=== PATIENT | male | born 1980 | race African-American/Black ===

== ENCOUNTER 2019-01-08 14:07 | Inpatient (IN) | payer SELFPAY ==
[~2019-01-08] VITALS: Ht 185.4 cm; Wt 143.9 kg
[2019-01-08 15:26] LABS: Basophils # (auto) 0.1 uL; Basophils % (auto) 0.6 % (0.0-2.0); Eosinophils # (auto) 0.1 uL; Eosinophils % (auto) 1.1 % (0.0-7.0); Mean Corpuscular Volume 65.4 fL (80.0-100.0); Red Blood Cells 4.79 10^6/uL (4.5-5.90)
[2019-01-08 15:29] LABS: Hematocrit 31.4 % (41.0-53.0); Hemoglobin 8.6 g/dL (13.5-17.5); Lymphocytes % (auto) 23.3 % (10.0-50.0); Mean Corpuscular Hgb Conc. 27.6 g/dL (32.0-36.0); Monocytes # (auto) 0.9 uL; Monocytes % (auto) 6.7 % (0.0-12.0); Neutrophils # (auto) 8.8 uL; Neutrophils % (auto) 68.3 % (37.0-80.0); Nucleated Red Blood Cells % 0.2 %; Platelet Count (auto) 413 10^3/uL (140-450); White Blood Cell 12.9 10^3/uL (4.4-10.8)
[2019-01-08 15:30] LABS: Albumin 3.4 g/dL (3.4-5.0); BUN/Creatinine Ratio 8.7; Calcium 8.8 mg/dL (8.5-10.1); Potassium 3.7 mmol/L (3.5-5.1)
[2019-01-08 15:33] LABS: Bilirubin, Total 0.4 mg/dL (0.2-1.0); Total Protein 7.9 g/dL (6.4-8.2)
[2019-01-08 15:37] LABS: INR < 0.93 (0.9-1.15); Partial Thromboplastin Time 27.1 sec (23.64-32.05)
[2019-01-08 15:39] LABS: Red Cell Distribution Width 25.3 % (11.8-14.3)
[2019-01-08] MEDS ORDERED: FAMOTIDINE (10MG/ML) 2ML VL IV ONE (23:45)
[2019-01-08] MEDS ORDERED: SODIUM CHLORIDE 0.9% 1,000 ML IV ONE (23:45)
[2019-01-09] VITALS (8 sets, daily range): BP systolic 120–150; BP diastolic 65–83
--- NOTE | 2019-01-09 07:10 | NUR ---
Echocardiogram obtained at the bedside.
[2019-01-09 07:34] LABS: Urine Bacteria NONE SEEN /hpf (None Seen); Urine Blood Negative /uL (Negative); Urine Mucus FEW (None Seen); Urine Specific Gravity 1.024 (1.001-1.035); Urine WBC 2 /hpf (0 - 3)
[2019-01-09 07:37] LABS: Hemoglobin 8.1 g/dL (13.5-17.5)
[2019-01-09 07:39] LABS: Hematocrit 29.1 % (41.0-53.0)
[2019-01-09 07:48] LABS: Amphetamine Screen, Urine NEGATIVE (NEGATIVE); Barbiturate Scree,Urine NEGATIVE (NEGATIVE); Benzodiazephine Screen, Urine NEGATIVE (NEGATIVE); Cannabinoid Screen, Urine NEGATIVE (NEGATIVE); Cocaine Screen, Urine NEGATIVE (NEGATIVE); Opiate Scree,Urine NEGATIVE (NEGATIVE); Phencyclidine Screen, Urine NEGATIVE (NEGATIVE)
[2019-01-09] MEDS ORDERED: PROMETHAZINE HCL 25 MG/ML 1ML IV PRN (10:00)
[2019-01-09] MEDS ORDERED: NITROGLYCERIN 0.4 MG SL TAB SL PRN (10:00)
[2019-01-09] MEDS ORDERED: ACETAMINOPHEN 500 MG TAB PO PRN (10:00)
[2019-01-09] MEDS ORDERED: MORPHINE SULF INJ 2 MG/ML SYRINGE 1ML IV PRN (10:00)
[2019-01-09] MEDS: PANTOPRAZOLE 40 MG TAB PO SCH ×2 (10:45→21:53)
[2019-01-09] MEDS: SODIUM CHLORIDE 0.9% 1,000 ML IV SCH ×2 (10:46→18:10)
--- NOTE | 2019-01-09 11:15 | NUR ---
Admit to [facility] admitted to [facility] via gurney on alarm security or surveillance monitor, and portable 02. Patient walked to bed by himself, connected to unit monitoring and oxygen, on O2 NC 2 LPM, and weighed by bedscale. Patient oriented to LEE BARILLAS RN primary RN, unit, room, bed, and unit policies regarding patient care and visiting hours. All questions and concerns addressed, patient verbalized understanding. Assessment done, plan of care discussed with patient and his , they refused to get Flu vaccine at this admission, the benefits explained but still refused. His requested social service consult for recourses and home safety.
[2019-01-09] MEDS: CEFOTETAN 1GM/D5W 50ML BAG 50 ML IV SCH ×2 (11:59→21:53)
[2019-01-09 12:00] LABS: Hematocrit 29.2 % (41.0-53.0); Hemoglobin 8.1 g/dL (13.5-17.5)
--- NOTE | 2019-01-09 13:15 | NUR ---
Patient went to the restroom, had small bowel movement with green color, forgot to correct the sample at this time. Patient made aware for the next time.
--- NOTE | 2019-01-09 13:30 | NUR ---
Patient had around 100% of Lunch tray.
--- NOTE | 2019-01-09 13:49 | NUR ---
Patient was sleeping and room air, he had desaturation from 74-87% while room air, HR 45-70/min, place O2 NC 2 LPM, will continue to monitor and care.
--- NOTE | 2019-01-09 13:56 | NUR ---
Patient's stated that patient has CPAP at home but the mask is broken and patient didn't use the CPAP for awhile.
[2019-01-09] MEDS ORDERED: IBUP200C3 PO (15:17)
[2019-01-09] MEDS ORDERED: FERR27TA2 PO (15:18)
[2019-01-09] MEDS ORDERED: ESOM20CA PO (15:18)
[2019-01-09] MEDS ORDERED: BENA5TAB5 PO (15:18)
[2019-01-09] MEDS ORDERED: CALC500C3 PO (15:18)
--- NOTE | 2019-01-09 16:15 | NUR ---
Received a call from Dr. Lugo, received order for NPO after midnight for EGD by Dr. Dumont on 01/10/19. Patient made aware.
--- NOTE | 2019-01-09 17:00 | NUR ---
Patient went to the restroom, provided wash clothes and warm water, patient cleaning himself inside the restroom then he went back to the bed, stated that he felt better. No accident noted.
[2019-01-09 18:07] LABS: Hematocrit 30.5 % (41.0-53.0); Hemoglobin 8.5 g/dL (13.5-17.5)
--- NOTE | 2019-01-09 18:35 | NUR ---
Dinner tray provided, and patient said he really hungry, he is staving, provided 2 more of apple juice and 2 more of jelly, order requested for ice cream to cafeteria. Patient also made aware that he will need to be NPO after midnight, will continue to monitor and care.
--- NOTE | 2019-01-09 19:30 | NUR ---
Opening Shift Note Assumed care of patient, awake and alert, walking in the room to the restroom, stable gait, tolerated well. Breathing on room air, No S/S of distress/SOB. Denied pain. 20G IV on left FA, CDI site, infusing NS. Due to void. Bed in low position, call light within reach, all alarms are audible, fall and safety precaution in place. Instructed on POC and to call for assist PRN, will continue to monitor for changes Q1hr and PRN.
--- NOTE | 2019-01-09 19:35 | NUR ---
Supplement Finished the dinner (1 bowl of soup, 50ml of extra broth, Jello-O x3, 1 Ice cream, 1 cup of tea). Pt asked for more tea with 4 sachets of sugar, Jell-Os. Provided Pt with a cup of tea with 2 sugars and 2 Splendid and 2 Jell-o. Pt tolerated well.
--- NOTE | 2019-01-09 22:00 | NUR ---
Condition update Pt v/s and condition stable. The at bedside, instructed on POC. Continue care.
[2019-01-10] VITALS: BP 129/60
--- NOTE | 2019-01-10 00:05 | NUR ---
LAB Noted no speech language pathologist assistant at bedside for 00.00am LABs. Called the LAB and notified, the [employer] Worker will come.
--- NOTE | 2019-01-10 00:15 | NUR ---
Condition update / apnea Pt fell asleep on RA breathing. Pt had sleep apnea, fluctuation of O2sat from 73-98%, Bradycardia to 40's while hypoxic. Woke Pt up, put on O2NC 3LPM. Paged RT for BiPAP at night. Continue monitoring.
--- NOTE | 2019-01-10 00:45 | NUR ---
Pulled BiPAP mask Pt woke up and pulled BiPAP mask out after wore for 15mins. Checked on Pt, Pt said the mask was to tight, agreed to wear BiPAP again. Pt adjusted the tightness by self. BiPAP setting 12/5, 28% O2, RR12. Breathing even and nonlabored, synchronized, O2sat 98%, no apneic cycle noted. Continue monitor.
--- NOTE | 2019-01-10 01:30 | NUR ---
Condition update/ pulled mask Pt woke up for urination and pulled the mask out. Explained the need of the mask and the condition that happened when Pt was apneic. Pt accepted to wear the mask back. Pt asked if the pressure can be adjusted lower. Told Pt that will ask the RT for him. Continue care.
[2019-01-10 02:00] LABS: Hematocrit 28.4 % (41.0-53.0); Hemoglobin 7.9 g/dL (13.5-17.5)
--- NOTE | 2019-01-10 02:15 | NUR ---
PT STATED HE WAS UNABLE TO TOLERATE BIPAP DUE TO THE DRY AIR. [facility] CPAP UNIT HAS WATER CHAMBER FOR HUMIDIFICATION. BIPAP REMOVED FROM ROOM AND REPLACED WITH CPAP UNIT 5. PT HOME SETTINGS CONTINUED WITH 6 CMH2O CPAP. THERE IS A 4L O2 BLEED IN CONNECTED. PT IS WEARING A MEDIUM FULL FACE MASK WITH LIQUICELL IN PLACE. NO SKIN BREAKDOWN NOTED. PT TOLERATING CPAP AT THIS TIME. WILL CONTINUE TO MONITOR PT.
--- NOTE | 2019-01-10 02:40 | NUR ---
Pulled CPAP mask, refused CPAP, C/O Pt woke up and pulled CPAP mask. Pt refused to wear the mask despite knowing the consequences. Prepared O2NC 5LPM at bedside for the Pt. Pt refused to wear the O2NC now, said that he will not sleep soon. Pt c/o that the air from the CPAP machine is dry and his mouth is dry. Pt asked to drink or have some more ices. Explained and reminded Pt about the procedure tomorrow. He said he supposed to be able to drink, explained to Pt and provided Pt with Lemon swabs. Pt still not satisfied. Continue monitor.
[2019-01-10] MEDS: SODIUM CHLORIDE 0.9% 1,000 ML IV SCH ×3 (03:25→18:49)
[2019-01-10 04:00] VITALS: BP 143/79
[2019-01-10 04:37] LABS: Basophils # (auto) 0.1 uL; Eosinophils # (auto) 0.1 uL; Hemoglobin 7.9 g/dL (13.5-17.5); Monocytes # (auto) 0.6 uL
[2019-01-10 04:38] LABS: Basophils % (auto) 0.5 % (0.0-2.0); Eosinophils % (auto) 0.6 % (0.0-7.0); Hematocrit 28.8 % (41.0-53.0); Lymphocytes # (auto) 2.4 uL; Lymphocytes % (auto) 22.1 % (10.0-50.0); Mean Corpuscular Hgb Conc. 27.4 g/dL (32.0-36.0); Mean Corpuscular Volume 65.5 fL (80.0-100.0); Monocytes % (auto) 5.9 % (0.0-12.0); Neutrophils # (auto) 7.6 uL; Neutrophils % (auto) 70.9 % (37.0-80.0); Nucleated Red Blood Cells % 0.3 %; Platelet Count (auto) 366 10^3/uL (140-450); Red Blood Cells 4.39 10^6/uL (4.5-5.90); White Blood Cell 10.7 10^3/uL (4.4-10.8)
[2019-01-10 05:02] LABS: Red Cell Distribution Width 25.5 % (11.8-14.3)
--- NOTE | 2019-01-10 05:20 | NUR ---
12 leads EKG obtained.
--- NOTE | 2019-01-10 05:30 | NUR ---
Patient bathe/linen change Patient given complete bath with CHG wipes for EGD preparation. Skin integrity assessed for any changes, no new changes. Complete linens changed. Patient repositioned by self well.
--- NOTE | 2019-01-10 06:10 | NUR ---
Summary Pt's condition stable. BP good. HR and O2sat fluctuating from apneic episode. Pt pulls his O2 face mask q 2mins to 30mins despite explaining. Lowest HR 39 and O2sat 69% with apneic breathing on RA because Pt pulled the mask. O2sat lowest with apneic episode with O2 face mask 5LPM = 93%. Continue care and will endorsed to day nurse.
--- NOTE | 2019-01-10 06:50 | NUR ---
PT. SLEEPING AT THIS TIME, OFF HIS CPAP. PT. CAME OFF EARLY THIS MORNING. TAKEN OFF BY NOC SHIFT RT., NO RESP. DISTRESS OR SOB NOTED. HR=61,RR=18,SP02=97% ON RA., CONTINUE TO MONITOR PT.
--- NOTE | 2019-01-10 07:30 | NUR ---
RECEIVED PATIENT SITTING UP IN THE BED, O2 BY SIMPLE MASK AT 5L, A/O TIMES 4, NS INFUSING INTO THE LFA AT 125ML/HR BY THE IV PUMP, USES THE URINAL ,DENIES PAIN
[2019-01-10 08:00] VITALS: BP 124/69
[2019-01-10] MEDS ORDERED: LIDOCAINE VISCOUS 2% 15ML UD ONE (08:15)
[2019-01-10] MEDS ORDERED: SODIUM CHLORIDE LOCK 10 ML ONE (08:15)
[2019-01-10] MEDS ORDERED: FLUMAZENIL 0.1 MG/ML INJ 10ML MDV IV ONE (08:15)
[2019-01-10] MEDS ORDERED: NALOXONE HCL 0.4 MG/ML VIAL ONE (08:15)
[2019-01-10] MEDS ORDERED: diphenhdrAMINE HCL 50 MG/1 ML VL ONE (08:16)
--- NOTE | 2019-01-10 08:48 | NUR ---
UP TO THE SINK PERFORMING ADLS
--- NOTE | 2019-01-10 10:00 | NUR ---
sitting up in the bed sleeping
[2019-01-10] MEDS: CEFOTETAN 1GM/D5W 50ML BAG 50 ML IV SCH ×2 (10:52→22:53)
[2019-01-10] MEDS: PANTOPRAZOLE 40 MG TAB PO SCH ×2 (10:52→21:45)
--- NOTE | 2019-01-10 11:00 | NUR ---
IN TO SEE THE PATIENT
--- NOTE | 2019-01-10 11:45 | NUR ---
EXPRESS TO THE PATIENT THAT HE CAN'[T GO OUT SIDE OR WALK AROUND IN THE [facility] HE IS IN [facility] BECAUSE THEY FEEL THAT HE NEEDS TO BE WATCHED MORE CLOSELY
[2019-01-10 12:00] VITALS: BP 131/76
--- NOTE | 2019-01-10 12:10 | NUR ---
DR PARKER IN TO SEE THE PATIENT
--- NOTE | 2019-01-10 12:35 | NUR ---
PATIENT TO THE GI LAB FOR EGD
[2019-01-10] MEDS: MIDAZOLAM HCL 5 MG/ML-1ML VIAL ONE ×2 (13:27→13:29)
[2019-01-10] MEDS: fentaNYL CITRATE 100 MCG/2 ML VL ONE ×2 (13:27→13:29)
--- NOTE | 2019-01-10 14:13 | NUR ---
REPORT CALLED TO [facility] PATIENT GOING TO ROOM 284B BY THE BED FROM THE GI LAB WILL BE PLACED ON TELE HC18
--- NOTE | 2019-01-10 14:25 | NUR ---
Patient to floor from recovery. S/p EGD. tolerated procedure well. no complications reported to me. the patient is alert and oriented. Somewhat tired but easily aroused. will continue to monitor the patient. they are encouraged to use the call light to call for assistance whenever they need it.
[2019-01-10 16:47] VITALS: BP 118/79
--- NOTE | 2019-01-10 17:10 | NUR ---
assessment Patient is a 38 year old male who is alert and oriented. Prior to admission patient lived home with his family and functioned independently. 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 Patient informed me he feels safe returning home on discharge. Patient informed me he has been weak since he became ill. I informed patient he has a consult for resources and home safety per family request. Patient informed me his needs help with taking care of the kids, taking care of the dogs, house work. I offered patient resources for private pay caregivers. Patient declined and told me to call his to see what she needs. I call patients and the number disconnects. Patient informed me he has no post discharge needs at this time. Patient verbalized understanding and agreed to discharge plan home. Addendum: 01/10/19 at 1715 by Lorenza BEST Amended: Links added.
[2019-01-10] MEDS: SUCRALFATE 1 GM/10 ML ORAL SUSP PO SCH ×2 (18:49→21:45)
--- NOTE | 2019-01-10 20:00 | NUR ---
OPENING NOTE RECEIVED REPORT FROM DAYSHIFT RN. ASSUMING ROLE OF CARE OF PATIENT AT THIS TIME. PATIENT EDUCATED ON PLAN OF CARE FOR THE NIGHT AND PATIENT VERBALIZED UNDERSTANDING. PATIENT SHOWING NO SIGN OF DISTRESS, SHORTNESS OF BREATH, AND PATIENT DENIES ANY PAIN AT THIS TIME. FOOD FOUND AT PATIENT'S TABLE. PATIENT IS FULL LIQUID AT THIS TIME. INFORMED PATIENT THAT THEY ARE NOT TO EAT ANY OF THAT FOOD. PATIENT VERBALIZED UNDERSTANDING AND STATES IT WAS FOR HIS THAT SHE BROUGHT IN. BED LOWERED, CALL LIGHT WITHIN REACH, AND PATIENT WILL BE ROUNDED ON EVERY HOUR AND NEEDED.
[2019-01-10] MEDS: traMADol HCL 50 MG TAB PO PRN (20:55)
[2019-01-10 22:00] VITALS: BP 120/57
--- NOTE | 2019-01-10 23:45 | NUR ---
Respiratory note: AT BEDSIDE TO ASSESS PT. PT DOES NOT WANT TO WEAR CPAP AT THIS TIME. BS ARE CLEAR DIMINISHED T/O, HR62, POX 96% ON RA. RN LEIGHTON AT BEDSIDE. PT AWARE HE CAN HAVE ME PAGED IF HE DECIDES HE WANTS TO BE PLACED ON CPAP. WILL CONTINUE TO MONITOR.
--- NOTE | 2019-01-11 00:50 | NUR ---
Respiratory note: CALLED TO BEDSIDE BY REBECA MANZANARES. PT HAS EPISODES OF DESATURATION. EXPLAINED TO PT THAT I MUST PLACE PT ON CPAP. PLACED ON CPAP ON SIZE M, MASK, NO BREAKDOWN NOTED,WITH 2LPM BLEED IN POX 99%. UNIT CONNECTED TO RED OUTLET AND O2 SOURCE. BS ARE DIMINISHED CLEAR T/O, PLACED ON BEDSIDE POX PER PROTOCOL.
--- NOTE | 2019-01-11 00:52 | NUR ---
RECEIVED CALL FROM [facility]. PATIENT'S HAS BRADYCARDIA WITH PAUSES. WALKED INTO PATIENT'S ROOM AND FOUND PATIENT DESATURATED WITHOUT CPAP. PATIENT PLACED ON O2 AND RT PAGED. RT PLACED PATIENT ON CPAP AND PATIENT'S O2 SATURATIONS RETURNED TO NORMAL AND HEART RATE INCREASED TO NORMAL LEVELS IN THE 70S. WILL CONTINUE TO MONITOR.
[2019-01-11] MEDS: SODIUM CHLORIDE 0.9% 1,000 ML IV SCH ×2 (01:48→09:48)
--- NOTE | 2019-01-11 02:29 | NUR ---
Respiratory note: AT BEDSIDE FOR ROUTINE CPAP CHECK. PT COMFORTABLY SLEEPING. NO CPAP CHANGES AT THIS TIME. WILL CONTINUE TO MONITOR Q2H.
--- NOTE | 2019-01-11 03:08 | NUR ---
CALLED TO BEDSIDE FOR PT DESAT. PT HAD REMOVED CPAP MASK AND O2 BLEED BECAME DISCONNECTED. O2 REATTACHED AND POX 96%
--- NOTE | 2019-01-11 04:37 | NUR ---
Respiratory note: AT BEDSIDE FOR END OF SHIFT CHECK. NO CHANGES MADE TO UNIT PT COMFORTABLY SLEEPING. WILL HAVE DAY SHIFT RT CONTINUE PLAN OF CARE.
--- NOTE | 2019-01-11 05:31 | NUR ---
PATIENT HAD A FIVE BEAT RUN OF VTACH EKG PERFORMED AND PATIENT ASSESSED. NO PAIN NOTED AND PATIENT IS ASYMPTOMATIC. EKG SHOWED SINUS BRADYCARDIA AND PVC. OTHERWISE NORMAL. HOSPITALIST PAGED AND INFORMED. NO FURTHER ORDERS PLACED AT THIS TIME.
[2019-01-11 05:34] VITALS: BP 132/59
[2019-01-11 06:11] LABS: Basophils # (auto) 0 uL; Basophils % (auto) 0.5 % (0.0-2.0); Nucleated Red Blood Cells % 0.1 %
[2019-01-11 06:13] LABS: Eosinophils # (auto) 0 uL; Eosinophils % (auto) 0.4 % (0.0-7.0); Hematocrit 30.2 % (41.0-53.0); Hemoglobin 8.5 g/dL (13.5-17.5); Lymphocytes # (auto) 2.2 uL; Lymphocytes % (auto) 23.4 % (10.0-50.0); Mean Corpuscular Hemoglobin 18.3 pg (28.0-32.0); Mean Corpuscular Hgb Conc. 28.1 g/dL (32.0-36.0); Mean Corpuscular Volume 65.1 fL (80.0-100.0); Monocytes # (auto) 0.5 uL; Neutrophils # (auto) 6.5 uL; Neutrophils % (auto) 70.7 % (37.0-80.0); Platelet Count (auto) 363 10^3/uL (140-450); Red Blood Cells 4.63 10^6/uL (4.5-5.90); White Blood Cell 9.3 10^3/uL (4.4-10.8)
[2019-01-11 06:18] LABS: Red Cell Distribution Width 24.8 % (11.8-14.3)
[2019-01-11] MEDS: traMADol HCL 50 MG TAB PO PRN ×2 (06:24→22:32)
[2019-01-11] MEDS: SUCRALFATE 1 GM/10 ML ORAL SUSP PO SCH ×4 (06:45→22:00)
--- NOTE | 2019-01-11 06:45 | NUR ---
Respiratory note: PATIENT TAKEN OFF CPAP AT THIS TIME AND WAS PLACED ON 2LPM N/C.
--- NOTE | 2019-01-11 07:30 | NUR ---
OPENING NOTE The patient is received alert and oriented times four with no SOB or s/s of distress at this time. The patient is resting in bed in the lowest position with call light within reach, will continue to monitor and POC.
[2019-01-11 09:00] VITALS: BP 150/71
--- NOTE | 2019-01-11 09:30 | NUR ---
PHYSICIAN BEDSIDE Dr. Peng is bedside and updates the patient on the POC. The patient needs a sleep study to qualify for a C-Pap for a new diagnosis of sleep apnea. Dr. Peng places a bilingual social worker consult for a C-Pap for the patient.
[2019-01-11] MEDS: CEFOTETAN 1GM/D5W 50ML BAG 50 ML IV SCH ×2 (10:09→22:34)
[2019-01-11] MEDS: PANTOPRAZOLE 40 MG TAB PO SCH ×2 (10:09→22:32)
--- NOTE | 2019-01-11 12:30 | NUR ---
Rounds Patient awake and alert. No S/S of distress/SOB or pain. Will continue to monitor changes q1hr and PRN.
[2019-01-11 12:36] VITALS: BP 130/72
--- NOTE | 2019-01-11 16:30 | NUR ---
Rounds Patient awake and alert. No S/S of distress/SOB or pain. Will continue to monitor changes q1hr and PRN.
[2019-01-11 17:19] VITALS: BP 125/75
--- NOTE | 2019-01-11 19:30 | NUR ---
Opening Shift Note Assumed care of patient, awake and alert. No S/S of distress/SOB or pain. Mom and at bedside. Instructed on POC and to call for assist PRN, will continue to monitor for changes Q1hr and PRN.
[2019-01-11 22:00] VITALS: BP 108/57
--- NOTE | 2019-01-12 02:49 | NUR ---
Respiratory note: PT ASSESSED FOR CPAP. PT AWARE IN BED ON CONT BEDSIDE PULSE OX. PT REFUSED CPAP AT THIS TIME. PT PRESENTING NO RESPIRATORY DISTRESS AT THIS TIME. WILL CONTINUE TO MONITOR. Addendum: 01/12/19 at 0255 by BLADIMIR MUELLER RT PT AWARE TO HAVE RN PAGE RT IF HE WANTS TO USE CPAP.
--- NOTE | 2019-01-12 03:28 | NUR ---
Respiratory note: PAGED TO BEDSIDE, PT SATURATION 68% ON ROOM AIR. PT PLACED ON CPAP AT THIS TIME. WILL CONTINUE TO MONITOR.
[2019-01-12 05:00] VITALS: BP 100/60
--- NOTE | 2019-01-12 05:00 | NUR ---
checked on patient often. Tele would call and notify me when patients HR would drop. When not on cpap and sleeping , sleep apnea is very apparent . Oxygen saturation also drops in the 80/s. Paged respiratory when he had fallen asleep and no cpap on. No distress at this time
[2019-01-12] MEDS: SUCRALFATE 1 GM/10 ML ORAL SUSP PO SCH ×4 (07:01→23:11)
--- NOTE | 2019-01-12 07:30 | NUR ---
Opening Shift Note Assumed care of patient. Patient is awake and alert. No S/S of distress/SOB or pain. Instructed on POC and to call for assist PRN, will continue to monitor. Bed locked in the lowest position. Bed rails up x2. Call light in reach.
--- NOTE | 2019-01-12 08:42 | NUR ---
PAGED MARKING STITCHER PAVING BED MAKER PAGED MARKING STITCHER PAVING BED MAKER REGARDING SOCIAL SERVICE CONSULT. AWAITING CALL BACK.
[2019-01-12 09:05] VITALS: BP 127/68
[2019-01-12] MEDS: CEFOTETAN 1GM/D5W 50ML BAG 50 ML IV SCH ×2 (09:50→23:11)
[2019-01-12 09:53] VITALS: BP 124/66
[2019-01-12] MEDS: PANTOPRAZOLE 40 MG TAB PO SCH ×2 (09:53→22:00)
--- NOTE | 2019-01-12 12:00 | NUR ---
SOCIAL SERVICE CONSULT WAREHOUSE SHIPPING RECEIVING CLERK NATURAL GAS TRADER, [employer], AWARE OF PENDING CONSULT.
[2019-01-12 14:46] VITALS: BP 118/86
--- NOTE | 2019-01-12 18:53 | NUR ---
CLOSING NOTE Patient is awake and alert. No S/S of distress/SOB or pain. Bed locked in the lowest position. Bed rails up x2. Call light in reach. Will endorse care to night RN.
--- NOTE | 2019-01-12 19:30 | NUR ---
Opening Shift Note Assumed care of patient, awake and alert. No S/S of distress/SOB or pain.somewhat anxious and wants to go home. Understands his need for cpap. Awaiting psychiatric social worker supervisor Instructed on POC and to call for assist PRN, will continue to monitor for changes Q1hr and PRN.
[2019-01-12 23:06] VITALS: BP 139/79
[2019-01-12] MEDS: traMADol HCL 50 MG TAB PO PRN (23:12)
[2019-01-13] MEDS ORDERED: diphenhdrAMINE HCL 25 MG CAP PO ONE (00:45)
[2019-01-13 05:38] VITALS: BP 111/65
[2019-01-13] MEDS: SUCRALFATE 1 GM/10 ML ORAL SUSP PO SCH ×2 (06:53→12:11)
--- NOTE | 2019-01-13 08:00 | NUR ---
Opening Shift Note Assumed care of patient, resting with eyes closed, wakes to touch. No S/S of distress/SOB or pain. Instructed on POC and to call for assist PRN, will continue to monitor for changes Q1hr and PRN.
[2019-01-13 09:00] VITALS: BP 133/64
[2019-01-13] MEDS: CEFOTETAN 1GM/D5W 50ML BAG 50 ML IV SCH (10:58)
[2019-01-13] MEDS: PANTOPRAZOLE 40 MG TAB PO SCH (10:58)
--- NOTE | 2019-01-13 11:12 | NUR ---
Nutrition Assessment Notes please see attached link for complete assessment Est. Needs ABW [id number] kcal (17-20 kcal/kgBW), 67-90 gms pro (0.6-0.8 gms/kgBW r/t elev ammonia). Will continue to monitor pertinent labs and reassess nutrient need prn Addendum: 01/13/19 at [address] Amended: Links added.
--- NOTE | 2019-01-13 12:28 | NUR ---
re-assessment Per ss consult needs cpap machine at home for sleep apnea. Patient was discharged home prior to discussing with him that he needs a sleep study that is out patient. Patient also has no insurance for payor source. Addendum: 01/14/19 at 1030 by Lorenza Islas Amended: Links added.
[2019-01-13 13:00] VITALS: BP 100/65
--- NOTE | 2019-01-13 14:13 | NUR ---
DISCHARGE/IRATE SPOUSE PATIENT'S CAME IN AND WAS YELLING LOUDLY AT THE NURSE'S STATION AFTER SPEAKING WITH THE DOCTOR. SHE WAS YELLING ABOUT FINDING OUT HIS NAME AND YELLING ABOUT PATIENT BEING DISCHARGE WITHOUT A CPAP ALTHOUGH THE DOCTOR EXPLAINED TO THE PATIENT THAT WE DO NOT HAVE A SLEEP STUDY LAB AT THIS HOSPITAL. HE WAS REFERRED TO ANOTHER HOSPITAL FOR A SLEEP STUDY AND CPAP. PATIENT'S YELLED AT ALL OF THE NURSES AND EVERYONE IN THE VACINITY. SECURITY WAS CALLED AND SHE CONTINUED TO BE IRATE WITH THEM AND BOTH THE PATIENT AND REFUSED TO GO BACK TO THE ROOM TO WAIT FOR THE DISCHARGE PAPERWORK. THE WAS ALSO VIDEOTAPING THE STAFF AND STATING THAT SHE WAS GOING TO [facility]. EVEN WHEN STAFF CALMLY TRIED TO ANSWER HER QUESTION, SHE CONTINUED TO YELL LOUDLY. THEY REFUSED TO WAIT IN THE ROOM FOR THEIR PAPERWORK TO BE COMPLETED. THEY LEFT THE FLOOR WITHOUT SIGNING ANY PAPERWORK. THEY CALLED FROM THE LOBBY AND THE NEWS BROADCASTER (ENEDINA) WALKED THE DISCHARGE PAPERWORK DOWN TO THEM BUT THEY REFUSED TO SIGN IT. PRESCRIPTION ALSO GIVEN TO PATIENT BY NEWS BROADCASTER. PATIENT HIMSELF WAS CALM AND NOT YELLING, BUT VERY IMPATIENT STANDING OVER THIS NURSE THE PAPERWORK WAS FINISHED AND ASKING IF IT WAS DONE ABOUT EVERY 1-2 MINUTES.
--- NOTE | 2019-01-13 16:45 | NUR ---
CALLED THE SPECIALTY FINISHING UTILITY PERSON OFFICE: RECEIVED A CALL FROM THE DIRECTOR OF RT DEPARTMENT THAT THE CPAP MACHINE THAT HAD BEEN IN THE ROOM PRIOR TO THE PATIENT LEAVING WAS NOW MISSING FROM THE ROOM. I CALLED AND INFORMED SECURITY WELL THE BIOMASS PRODUCTION MANAGER. PATIENT HAD BEEN STATING EARLIER IN THE DAY THAT IF WE WEREN'T GOING TO PROVIDE HIM WITH A CPAP MACHINE ON DISCHARGE HE WOULD JUST TAKE THE ONE FROM HIS ROOM. DR PARKER INFORMED HIM THAT WAS NOT HOW IT WORKED AND THE CPAP WAS [facility]. ONCE IT WAS DISCOVERED BY RT THAT THE EQUIPMENT WAS MISSING THE SPECIALTY FINISHING UTILITY PERSON OFFICE WAS CALLED AND IT WAS REPORTED. THEY ARE SENDING OUT AN OFFICER. I ALSO REQUESTED THAT SECURITY REVIEW THE VIDEOTAPE TO SEE IF YOU COULD SEE THE PATIENT TAKING THE EQUIPMENT FROM THE ROOM.
== END 2019-01-13 14:06 | disposition home or self-care (01) | DRG 381 ==
LOC: ER 14:07 → OVERFLOW 14:08 → DOU IN ICU 01-09 10:37 → TELE-WESTW 01-10 14:45
PROVIDERS: ADMIT Internal Medicine; ATTEND Family Medicine
PROC: 5A09357 Assistance with Respiratory Ventilation, Less than 24 Consecutive Hours, Continuous Positive Airway Pressure (ICD-10-PCS; 2019-01-09)
PROC: 0DB88ZX Excision of Small Intestine, Via Natural or Artificial Opening Endoscopic, Diagnostic (ICD-10-PCS; 2019-01-10)
PROC: 0DB68ZX Excision of Stomach, Via Natural or Artificial Opening Endoscopic, Diagnostic (ICD-10-PCS; 2019-01-10)
PROC: 5A09357 Assistance with Respiratory Ventilation, Less than 24 Consecutive Hours, Continuous Positive Airway Pressure (ICD-10-PCS; 2019-01-10)
PROC: 0DB38ZX Excision of Lower Esophagus, Via Natural or Artificial Opening Endoscopic, Diagnostic (ICD-10-PCS; principal; 2019-01-10 13:19)
PROC: 5A09357 Assistance with Respiratory Ventilation, Less than 24 Consecutive Hours, Continuous Positive Airway Pressure (ICD-10-PCS; 2019-01-11)
PROC: 5A09357 Assistance with Respiratory Ventilation, Less than 24 Consecutive Hours, Continuous Positive Airway Pressure (ICD-10-PCS; 2019-01-12)
PROC: 5A09357 Assistance with Respiratory Ventilation, Less than 24 Consecutive Hours, Continuous Positive Airway Pressure (ICD-10-PCS; 2019-01-13)
DX: K22.11 Ulcer of esophagus with bleeding (principal); Z68.41 Body mass index [BMI] 40.0-44.9, adult; D62 Acute posthemorrhagic anemia; K29.61 Other gastritis with bleeding; E66.01 Morbid (severe) obesity due to excess calories; F17.210 Nicotine dependence, cigarettes, uncomplicated; G47.33 Obstructive sleep apnea (adult) (pediatric); K44.9 Diaphragmatic hernia without obstruction or gangrene; K21.0 Gastro-esophageal reflux disease with esophagitis; Z80.42 Family history of malignant neoplasm of prostate; Z87.11 Personal history of peptic ulcer disease; Z87.19 Personal history of other diseases of the digestive system
CPT/HCPCS: 36415; 36600; 70450; 71045; 71046; 74176; 80053; 80307; 80320; 81001; 82140; 82270; 82805; 83021; 84484; 85014; 85018; 85025; 85045; 85379; 85610; 85652; 85660; 85730; 86141; 86850; 86900; 86901; 87081; 93005; 93306; 94660; 94761; 96361; 96374; G0378; J2250; J3490